=== PATIENT | female | born 1990 | race Hispanic/Latino ===

== ENCOUNTER → 2018-04-22 | Day surgery (SDC) | payer BC ==
[2018-04-21 13:37] LABS: BASOPHILS % 0.6 % (0.0-1.0); EOSINOPHILS # (AUTO) 0.1 (0.0-0.4); EOSINOPHILS % 0.7 % (0.0-6.0); HEMATOCRIT 37.7 % (34.2-44.1); HEMOGLOBIN 12.3 g/dL (12.0-16.0); LYMPHOCYTES # (AUTO) 1.3 (1.0-3.2); LYMPHOCYTES % 18.9 % (18.0-39.1); MEAN CORPUSCULAR HEMOGLOBIN 27.1 pg (28-32); MEAN CORPUSCULAR HGB CONC 32.6 g/dL (31-35); MONOCYTES # (AUTO) 0.5 (0.2-0.8); MONOCYTES % 7.2 % (4.4-11.3); NEUTROPHILS % 72.3 % (38.7-80.0); PLATELET COUNT 254 x10e3/uL (140-360); RED BLOOD COUNT 4.54 x10e6/uL (3.6-5.1); RED CELL DISTRIBUTION WIDTH 13.8 % (11.7-14.4)
[~2018-04-22] MED LIST: CEFTRIAXONE SOD 1 GM VIAL ONE; DEXAMETHASONE SOD PHOS INJ 4 MG/ML VIAL ONE; FENTANYL CITRATE/PF 100MCG/2 ML INJ ONE; IBUPROFEN400 MG PO; IOPAMIDOL 610MG/1ML 300 MG/ML VIAL IV ONE; LIDOCAINE HCL 2% LOCAL INJ 5 ML SDV VIAL INJ ONE; MIDAZOLAM HCL 2 MG/2 ML VIAL ONE; ONDANSETRON HCL INJ 2 MG/ML VIAL ONE; PROPOFOL IV EMULSION 10 MG/ML 20 ML VIAL ONE; SEVOFLURANE INHAL SOLN 250 ML PEN BTL ONE; TAMSULOSIN HCL0.4 MG PO; TYLENOL WITH C1 EACH PO
--- OUTSIDE RECORDS SUMMARY | 2018-04-22 10:23 | XMS REPORT ---
[facility] Address Unknown Phone Unavailable Care Team Providers Care Conveyor Feeder Name Role Phone Unavailable Unavailable Payers Payer Name Policy Type Policy Number Effective Date Expiration Date Problems This patient has no known problems. Allergies, Adverse Reactions, Alerts Allergy Name Allergy Type Status Severity Reaction(s) Onset Date Inactive Date Treating Clinician Comments No Known Allergies DA Active U 2018-04-15 00:00:00 Medications This patient has no known medications. Encounters Start Date/Time End Date/Time Encounter Type Admission Type Attending [facility] Emergency [facility] Facility Care Department Encounter ID 2017-07-18 00:00:00 Inpatient [facility] [id number] 2017-07-18 00:00:00 Inpatient [facility] [id number] 2018-04-15 20:00:00 2018-04-15 20:00:00 Emergency [facility] [id number] 2018-04-04 00:00:00 2018-04-04 00:00:00 Outpatient [facility] [id number] 2018-04-01 16:21:52 2018-04-01 16:21:52 Outpatient [facility] [id number] 2017-10-11 13:49:11 2017-10-11 13:49:11 Outpatient [facility] [id number] 2017-09-06 10:25:34 2017-09-06 10:25:34 Outpatient [facility] [id number] 2017-08-17 17:25:29 2017-08-17 17:25:29 Outpatient [facility] [id number] 2017-07-26 00:00:00 2017-07-26 00:00:00 Outpatient [facility] [id number] 2017-07-19 00:00:00 2017-07-19 00:00:00 Outpatient [facility] [id number] 2017-07-18 03:43:28 2017-07-18 03:43:28 Inpatient [facility] [id number] 2017-07-12 09:21:28 2017-07-12 09:21:28 Outpatient [facility] [id number] 2017-07-01 09:32:25 2017-07-01 09:32:25 Outpatient [facility] [id number] 2017-06-21 12:58:47 2017-06-21 12:58:47 Outpatient [facility] [id number] 2017-06-21 11:20:09 2017-06-21 11:20:09 Outpatient [facility] [id number] 2017-06-21 00:00:00 2017-06-21 00:00:00 Outpatient [facility] [id number] 2017-06-20 13:06:20 2017-06-20 13:06:20 Outpatient [facility] [id number] 2017-06-14 00:00:00 2017-06-14 00:00:00 Outpatient [facility] [id number] 2017-06-12 00:00:00 2017-06-12 00:00:00 Outpatient [facility] [id number] 2017-06-07 10:46:53 2017-06-07 10:46:53 Outpatient [facility] [id number] 2017-06-07 00:00:00 2017-06-07 00:00:00 Outpatient [facility] [id number] 2017-05-24 07:35:24 2017-05-24 07:35:24 Outpatient [facility] [id number] 2017-05-24 00:00:00 2017-05-24 00:00:00 Outpatient [facility] [id number] 2017-05-10 07:53:14 2017-05-10 07:53:14 Outpatient [facility] [id number] 2017-04-16 13:56:35 2017-04-16 13:56:35 Outpatient [facility] [id number] 2017-04-16 12:50:52 2017-04-16 12:50:52 Outpatient [facility] [id number] 2017-03-15 10:45:08 2017-03-15 10:45:08 Outpatient [facility] [id number] 2017-03-11 13:47:39 2017-03-11 13:47:39 Outpatient [facility] [id number] 2017-03-06 15:26:32 2017-03-06 15:26:32 Outpatient [facility] [id number] 2017-03-06 15:15:00 2017-03-06 15:15:00 Outpatient [facility] [id number] 2017-03-06 00:00:00 2017-03-06 00:00:00 Outpatient [facility] [id number] 2017-02-15 11:48:22 2017-02-15 11:48:22 Outpatient [facility] [id number] 2017-02-15 10:59:25 2017-02-15 10:59:25 Outpatient [facility] [id number] 2017-01-25 00:00:00 2017-01-25 00:00:00 Outpatient [facility] [id number] 2017-01-18 08:30:52 2017-01-18 08:30:52 Outpatient [facility] [id number] 2016-12-27 14:46:01 2016-12-27 14:46:01 Outpatient [facility] [id number] 2016-12-21 10:02:47 2016-12-21 10:02:47 Outpatient [facility] [id number] 2016-12-21 08:24:44 2016-12-21 08:24:44 Outpatient [facility] [id number] 2016-11-28 12:41:38 2016-11-28 12:41:38 Outpatient [facility] [id number] 2016-11-28 10:16:08 2016-11-28 10:16:08 Outpatient [facility] [id number] 2016-11-28 09:08:23 2016-11-28 09:08:23 Outpatient [facility] [id number]
[2018-04-22 12:32] LABS: ANION GAP 14.8 mmol/L (8-16); BLOOD UREA NITROGEN 9 mg/dL (7-26); BUN/CREATININE RATIO 15 (6-25); CALCIUM 9.3 mg/dL (8.4-10.2); CARBON DIOXIDE 22 mmol/L (22-29); CHLORIDE 102 mmol/L (98-107); CREATININE, SERUM 0.61 mg/dL (0.57-1.11); EST GLOMERULAR FILTRATION RATE > 60 ML/MIN (60-); GLUCOSE 88 mg/dL (74-118); POTASSIUM 3.8 mmol/L (3.5-5.1); SODIUM 135 mmol/L (136-145)
[2018-04-22 14:20] VITALS: BP 118/72
--- NOTE | 2018-04-23 13:13 | Operative Report ---
DATE OF PROCEDURE: April 23, 2018 PREOPERATIVE DIAGNOSIS: Right distal ureteral stone with obstruction. POSTOPERATIVE DIAGNOSIS: Right distal ureteral stone with obstruction. PROCEDURES PERFORMED: 1. Cystoscopy. 2. Right retrograde pyelogram. 3. Right ureteroscopy with stone extraction. 4. Placement of right ureteral stent. ANESTHESIA: General. ESTIMATED BLOOD LOSS: Minimal. INDICATIONS: Ms. Coty De La Vega is a 27-year-old woman with a history of right flank pain, found to have a 1 cm right distal ureteral stone. She now presents for definite surgical management of that problem: PROCEDURE IN DETAIL: The patient was brought into the operating room and placed in the supine position. After initiation of general anesthesia, she was prepped and draped in usual sterile fashion. Cystourethroscopy was performed using 20-Ethiopian cystocope. The anterior and posterior regions were noted to be normal. Bladder was entered without difficulty. Upon entrance into the bladder, the ureteral orifices were in normal anatomical position. The stone could be seen behind the right ureteral orifice. The left ureteral orifice was completely normal. There were no mucosal lesions identified. Using a 5-Ethiopian open tipped catheter, a right retrograde pyelogram was performed. This revealed a stone fitting comfortably in the distal right ureter just above the ureteral orifice. There was minimal hydronephrosis noted behind this. An Amplatz wire was then placed under fluoroscopic guidance up into the right renal pelvis. The ureteral orifice dilated with two 18-Ethiopian. Rigid ureteroscopy was then performed. The previously described stone was seen in the previously described location and this was grasped with a basket and removed in its entirety. It was sent to pathology for microscopic analysis. Repeat ureteroscopy up to the ureteropelvic junction revealed no other calcifications or lesions. There was mild dilation noted. The ureteroscope was then removed and a 6-Ethiopian double pigtail stent for her height was placed such that one coil was in the renal pelvis and the subsequent coil was in her bladder. The string was allowed to exit through the ureteral meatus. The bladder was then drained in its entirety, and the scope and the sheath were removed. The patient was returned to the supine position, and anesthesia was reversed. She was transferred to a bed and taken to the postanesthesia care unit in good condition. Of note, the needle and the instrument counts were correct at the conclusion of the case. Job#: [id number]
== END | disposition home or self-care (01) ==
LOC: OR 10:20
PROVIDERS: ATTEND Urology
DX: N20.1 Calculus of ureter (principal); N13.30 Unspecified hydronephrosis; R06.02 Shortness of breath; Z01.812 Encounter for preprocedural laboratory examination
CPT/HCPCS: 36415 ×2; 52332; 52352; 74420; 80048; 81025; 85025; 88300; C1726; J0696; J1100; J2001; J2250; J2405; J2704; Q9967